=== PATIENT | male | born 1950 | race Caucasian/White ===

== ENCOUNTER 2019-04-22 07:42 | Day surgery (SDC) | payer OTHER, MEDICARE ==
[2019-04-22 08:22] VITALS: BMI 28.0
[2019-04-22 10:39] VITALS: TEMP 98
[2019-04-22 11:03] VITALS: BP 116/65; PULSE 74
== END 2019-04-22 11:05 | disposition home or self-care (01) ==
LOC: FASU-ENDO 07:42
PROVIDERS: ATTEND Internal Medicine Gastroenterology
PROC: 0DJD8ZZ Inspection of Lower Intestinal Tract, Via Natural or Artificial Opening Endoscopic (ICD-10-PCS; principal; 2019-04-22 10:10)
DX: Z86.010 Personal history of colon polyps (principal); Z83.71 Family history of colonic polyps; K57.30 Diverticulosis of large intestine without perforation or abscess without bleeding